=== PATIENT | female | born 1930 | race Caucasian/White ===

== ENCOUNTER → 2017-05-24 | Outpatient (CLI) | payer MEDICARE ==
[~2017-05-24] MED LIST: BYSTOLIC10 MG PO; LOSARTAN-HCTZ1 EAC1; LOSARTAN-HCTZ1 EAC3 PO; OMEPRAZOLE40 MG PO; Z.0.PRAVASTATIN SOD2 PO
--- NOTE | 2017-05-24 14:11 | Diagnostic Imaging Report ---
PROCEDURE:X-RAY RIGHT KNEE, THREE OR MORE VIEWS COMPARISON:None. INDICATIONS:RIGHT KNEE PAIN FINDINGS: There are no fractures, subluxations, lytic or blastic lesions. Tricompartmental degenerative changes, marked by joint space narrowing and marginal osteophytosis. M bilateral meniscal calcifications. Possible small suprapatellar joint effusion. Hoffa's fat pad is clear. Soft tissues are unremarkable. CONCLUSION: No acute fracture or dislocation of the right knee. Tricompartmental degenerative changes. Meniscal calcifications. Dictated by: Ubaldo Palomo M.D. on 05/24/2017 at 14:10 Electronically approved by: Ubaldo Palomo M.D. on 05/24/2017 at 14:10
--- NOTE | 2017-05-26 14:45 | Cardiology Report ---
DATE OF STUDY: May 24, 2017 DOPPLER SCAN OF RIGHT LEG VEINS The right leg veins were interrogated using the duplex scanning method. The common femoral vein appears to be only partially compressible. Interrogation is somewhat limited. Image quality is limited. Elsewhere the veins were compressible without definite deep venous thrombosis. The left leg was not studied. CONCLUSIONS: 1. Suboptimal study with limited interrogation of the right common femoral area. The right common femoral vein may not be completely compressible. Deep venous thrombosis cannot be completely excluded. 2. There were no definite deep venous thromboses elsewhere in the right leg veins. 3. The left leg was not studied. Job#: [id number] cc:CAROLYN ROUSE MD
== END ==
LOC: RAD 13:16
PROVIDERS: ATTEND Family Medicine
DX: M25.561 Pain in right knee (principal); I82.401 Acute embolism and thrombosis of unspecified deep veins of right lower extremity
CPT/HCPCS: 93971

== ENCOUNTER → 2019-08-11 | Outpatient (CLI) | payer MEDICARE ==
--- NOTE | 2019-08-11 11:19 | Diagnostic Imaging Report ---
EXAM: Transabdominal and Transvaginal Pelvic Ultrasound INDICATION: Vaginal bleeding ^[id number] ^[id number] ^VAGINAL BLEEDING COMPARISON: None TECHNIQUE: Grayscale transverse and sagittal transabdominal and transvaginal images were obtained of the pelvis. Transvaginal imaging was medically necessary to better evaluate the endometrium and the adnexa. CLINICAL HISTORY: 89 year old A0; FINDINGS: Uterus Orientation: Normal Size: 4.6 x 3.1 x 4.7 cm, Normal Mass: 2.6 x 2.4 x 1.9 cm round, hypoechoic lesion with foci of shadowing within the fundus. Cervix: Normal Endometrium: Poorly visualized. Right ovary: Not visualized. Left ovary: Not visualized. Adnexa: No masses Cul-de-sac: No free fluid IMPRESSION: 2.6 cm suspected partially calcified uterine fibroid. Poor visualization of the endometrium. Above-described suspected fibroid may account for the history of vaginal bleeding; however, endometrial biopsy should be considered for further evaluation in a patient of this age. Nonvisualization of the ovaries, likely age-related. Signed by: Dr. Adam Mas M.D. on 08/11/2019 11:15 AM
== END ==
LOC: US 09:41
PROVIDERS: ATTEND Family Medicine
DX: N93.9 Abnormal uterine and vaginal bleeding, unspecified (principal)
CPT/HCPCS: 76830; 76856